=== PATIENT | female | born 1970 ===

== ENCOUNTER 2019-03-17 10:05 | Outpatient (CLI) | payer OTHER ==
[~2019-03-17] VITALS: Ht 162.6 cm; Wt 116.1 kg
[2019-03-17] MEDS ORDERED: LIPO-FLAVONOID1 EACH PO (12:01)
== END 2019-03-17 10:20 | disposition home or self-care (01) ==
LOC: OFIC 805 10:05
DX: H81.11 Benign paroxysmal vertigo, right ear (principal); H93.11 Tinnitus, right ear; H81.41 Vertigo of central origin, right ear